=== PATIENT | female | born 2000 | race Caucasian/White ===

== ENCOUNTER 2021-10-29 18:46 | Emergency (ER) | payer OTHER ==
[~2021-10-29] VITALS: Ht 157.5 cm; Wt 63.8 kg
[2021-10-29 19:31] VITALS: BP 138/87
[2021-10-29] MEDS ORDERED: diazePAM 5 MG TABLET. PO ONE (20:15)
--- NOTE | 2021-10-29 20:59 | PHYS DOC ---
Past History Past Surgical History: Other Additional Past Surgical Histo: R foot surgeru Alcohol Use: Rarely Adult General Chief Complaint Chief Complaint: OTHER COMPLAINTS HPI HPI Patient is an otherwise healthy 20-year-old female who presents with a chief complaint of anxiety and panic attack. States that she is been under a lot of stress and her and her just moved here because he is in the and she has been having a quite a bit of anxiety about this. States she had a panic attack today while sitting at home and felt scared and got sweaty that lasted about 10 to 15 minutes. States she still anxious but is not as bad as it was. Denies any other recent traumas, illness, fevers, rash, chest pain, shortness of breath, abdominal pain, nausea, vomiting, diarrhea. Denies any numbness/weakness/tingling. Denies any trouble sitting, standing or walking. Denies any alcohol or drug use. Review of Systems Review of Systems Review of systems otherwise unremarkable except noted in HPI Current Medications Current Medications Current Medications Medications (Trade) Dose Ordered Sig/Bryce Start Time Stop Time Status Last Admin Dose Admin Diazepam (Valium) 10 mg 1X ONCE 10/29/21 20:15 10/29/21 20:27 DC 10/29/21 20:46 10 MG Allergies Allergies Allergies Coded Allergies Type Severity Reaction Last Updated Verified No Known Drug Allergies 10/29/21 No Physical Exam Physical Exam Constitutional: Well developed, well nourished, no acute distress, non-toxic appearance. [] HENT: Normocephalic, atraumatic, oropharynx moist, Eyes: conjunctiva normal, no discharge. [] Neck: Normal range of motion, no tenderness, supple, no stridor. [] Cardiovascular: Heart rate regular rhythm, no murmur [] Lungs & Thorax: No respiratory distress Abdomen: soft, no tenderness, no masses, no pulsatile masses. [] Skin: Warm, dry, no erythema, no rash. [] Back: No tenderness, no CVA tenderness. [] Extremities: No tenderness, no cyanosis, no clubbing, ROM intact, no edema. [] Neurologic: Alert and oriented X 3, normal motor function, normal sensory function, no focal deficits noted. [] Psychologic: Affect normal, judgment normal, anxious, no SI, no HI No hallucinations. Patient recently moved under a lot of stress and had an anxiety attack Current Patient Data Vital Signs Vital Signs Date Time Temp Pulse Resp B/P (MAP) Pulse Ox O2 Delivery O2 Flow Rate FiO2 10/29/21 19:31 98.2 16 138/87 (104) 97 Room Air EKG EKG [] Radiology/Procedures Radiology/Procedures [] Heart Score C/O Chest Pain: No Risk Factors: Risk Factors: DM, Current or recent (<one month) smoker, HTN, HLP, family history of CAD, obesity. Risk Scores: Risk Factors: DM, Current or recent (<one month) smoker, HTN, HLP, family history of CAD, obesity. Course & Med Decision Making Course & Med Decision Making Patient is a 20-year-old female presents after an anxiety attack Vital signs nonconcerning. Physical exam noted above. History, physical exam suggestive of generalized anxiety and panic attack Given oral diazepam. Discussed symptom control at home. Discussed coping mechanisms. Given community resource packet and guidance Center information as well as local primary care physicians Advised to follow-up in the morning with a primary care physician to establish care if [place] and [place] if [place] Gave return precautions to the ED. Patient grateful, verbalized understanding and agreed with plan of discharge [] Dragon Disclaimer Dragon Disclaimer This electronic medical record was generated, in whole or in part, using a voice recognition dictation system. Departure Departure: Impression: Primary Impression: Anxiety attack Disposition: HOME / SELF CARE / HOMELESS Condition: STABLE Referrals: PCP,NO (PCP) [facility] Patient Instructions: Anxiety and Panic Attacks Additional Instructions: Thank you for coming into the emergency department tonight and allowing us to take care of you. Please read the attached information carefully to go over things we discussed. It is very important that you follow-up in the morning with your primary care physician to discuss your ED visit and set up a follow-up as soon as possible to discuss further evaluation and treatment. You are given contact information and community resources for local primary care physicians and the guidance Center which has great resources and counselors to discuss g eneralized anxiety and panic attacks. Please, to the emergency department immediately with new or concerning symptoms as discussed. GEORGE HUGHES MD October 29, 2021 20:59
[2021-10-29] MEDS ORDERED: DIAZ5TAB4 PO (21:01)
== END 2021-10-29 21:55 | disposition home or self-care (01) ==
LOC: ER 18:46 → EEVIPCON 18:46 → ER 21:55
DX: F41.9 Anxiety disorder, unspecified (principal)
CPT/HCPCS: 99284

== ENCOUNTER 2021-10-30 08:13 | Emergency (ER) | payer OTHER ==
[~2021-10-30] VITALS: Ht 157.5 cm; Wt 63.8 kg
[~2021-10-30 08:13] MED LIST: DIAZ5TAB4 PO
--- NOTE | 2021-10-30 08:56 | PHYS DOC ---
Past History Past Surgical History: Other Additional Past Surgical Histo: R foot surgerY Alcohol Use: Occasionally General Adult EDM: Chief Complaint: ANXIETY/PANIC ATTACK HPI: HPI: 20-year-old female returns the emergency room with continued anxiety and sleep deprivation. The patient is to a member and they just moved here. This is the first time patient moved away from home. She has not slept for at least 4 days. The patient was seen by my colleague in this emergency room last night. She was given diazepam which seemed to make her sleepy. When she went home however, she stayed up all night and did not sleep. She realizes that she probably is not thinking correctly at this time. She would however like blood work to make sure she does not have signs of infection. She had an ankle surgery 6 weeks ago that required internal fixation. 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 This has her worried that her new ankle hardware could become a problem. The patient has no official psychiatric history. She has had episodes where she has not slept for extended periods when she is very anxious. She is not on any medications daily. Review of Systems: Review of Systems: Constitutional: Denies fever or chills Eyes: Denies change in visual acuity HENT: Denies nasal congestion or sore throat Respiratory: Denies cough or shortness of breath Cardiovascular: Denies chest pain or edema GI: Denies abdominal pain, nausea, vomiting, bloody stools or diarrhea : Denies dysuria Musculoskeletal: Denies back pain or joint pain Integument: Denies rash Neurologic: Denies headache, focal weakness or sensory changes Endocrine: Denies polyuria or polydipsia Lymphatic: Denies swollen glands Psychiatric: Anxiety Allergies: Allergies: Allergies Coded Allergies Type Severity Reaction Last Updated Verified No Known Drug Allergies 10/30/21 No Physical Exam: PE: Constitutional: Well developed, well nourished, no acute distress, non-toxic appearance. [] HENT: Normocephalic, atraumatic, bilateral external ears normal, oropharynx moist, no oral exudates, nose normal. [] Eyes: PERRLA, EOMI, conjunctiva normal, no discharge. [] Neck: Normal range of motion, no tenderness, supple, no stridor. [] Cardiovascular: Heart rate regular rhythm, no murmur [] Lungs & Thorax: Bilateral breath sounds clear to auscultation [] Abdomen: Bowel sounds normal, soft, no tenderness, no masses, no pulsatile masses. [] Skin: Warm, dry, no erythema, no rash. [] Back: No tenderness, no CVA tenderness. [] Extremities: No tenderness, no cyanosis, no clubbing, ROM intact, no edema. [] Neurologic: Alert and oriented X 3, normal motor function, normal sensory function, no focal deficits noted. [] Psychologic: Affect incongruent, pressured, judgement mildly impaired, mood anxious. [] Current Patient Data: Vital Signs: Vital Signs Date Time Temp Pulse Resp B/P (MAP) Pulse Ox O2 Delivery O2 Flow Rate FiO2 10/30/21 08:35 98.2 84 20 126/71 (89) 97 Room Air EKG: EKG: [] Radiology/Procedures: Radiology/Procedures: [] Heart Score: C/O Chest Pain: N/A Risk Factors: Risk Factors: DM, Current or recent (<one month) smoker, HTN, HLP, family history of CAD, obesity. Risk Scores: Score 0 - 3: 2.5% MACE over next 6 weeks - Discharge Home Score 4 - 6: 20.3% MACE over next 6 weeks - Admit for Clinical Observation Score 7 - 10: 72.7% MACE over next 6 weeks - Early Invasive Strategies Course & Med Decision Making: Course & Med Decision Making Pertinent Labs and Imaging studies reviewed. (See chart for details) Patient's labs are unremarkable except for mildly low potassium at 3.2. She is greatly reassured by her results. I will give her 2 mg of Ativan IV and 10 mg of Zyprexa p.o. for her generalized anxiety and help her sleep. She is stable for discharge at this time. [] Dragon Disclaimer: Dragon Disclaimer: This electronic medical record was generated, in whole or in part, using a voice recognition dictation system. Departure Departure: Impression: Primary Impression: Anxiety about health Additional Impression: Sleep deprivation Disposition: HOME / SELF CARE / HOMELESS Condition: STABLE Referrals: PCP,NO (PCP) Patient Instructions: Anxiety and Panic Attacks, [id number] Additional Instructions: When you get home if you are still having difficulty falling asleep, you can take 50 mg of Benadryl. DIANDRA CONRAD DO October 30, 2021 08:56
[2021-10-30] MEDS: IV NORMAL SALINE 1,000ML 1,000 ML IV ONE (09:00)
[2021-10-30 09:15] LABS: BASO % 0 % (0-3); EOS % 0 % (0-3); HEMATOCRIT 41.6 % (36.0-47.0); LYMPH # 1.2 x10^3/uL (1.0-4.8); LYMPH % 14 % (24-48); MEAN CORPUSCULAR HEMOGLOBIN 30 pg (25-35); MEAN CORPUSCULAR HGB CONC 34 g/dL (31-37); MEAN CORPUSCULAR VOLUME 90 fL (79-100); MONO # 0.4 x10^3/uL (0.0-1.1); MONO % 5 % (0-9); NEUT # 7.4 x10^3uL (1.8-7.7); NEUT % 81 % (31-73); PLATELET COUNT 245 x10^3/uL (140-400); RED CELL DISTRIBUTION WIDTH 12.9 % (11.5-14.5); WHITE BLOOD COUNT 9.1 x10^3/uL (4.0-11.0)
[2021-10-30 09:22] LABS: CALCIUM 9.7 mg/dL (8.5-10.1); CREATININE 0.7 mg/dL (0.6-1.0); GFR 107.8; POTASSIUM 3.2 mmol/L (3.5-5.1)
[2021-10-30 09:27] LABS: ALBUMIN 4.9 g/dL (3.4-5.0); ALBUMIN/GLOBULIN RATIO 1.5 (1.0-1.7); TOTAL BILIRUBIN 0.6 mg/dL (0.2-1.0); TOTAL PROTEIN 8.2 g/dL (6.4-8.2)
[2021-10-30 10:15] VITALS: BP 122/70
== END 2021-10-30 10:38 | disposition home or self-care (01) ==
LOC: ER 08:13
DX: F41.9 Anxiety disorder, unspecified (principal); Z72.820 Sleep deprivation
CPT/HCPCS: 36415; 80053; 85025; 96361; 96374; 99283; J2060; J7030